=== PATIENT | male | born 1980 | race Caucasian/White ===

== ENCOUNTER 2019-11-28 11:33 | Emergency (ER) | payer OTHER ==
[2019-11-29 12:56] LABS: SARS-CoV-2 MS2 Positive; SARS-CoV-2 N Gene Negative; SARS-CoV-2 S Gene Negative; SARS-CoV-2 by NAA Not Detected (NotDetected); SARS-CoV-2 orf1ab Negative
== END 2019-11-28 12:45 | disposition home or self-care (01) ==
LOC: ERS 11:33
DX: J34.89 Other specified disorders of nose and nasal sinuses (principal); R05 Cough; R06.00 Dyspnea, unspecified; Z20.828 Contact with and (suspected) exposure to other viral communicable diseases; F41.9 Anxiety disorder, unspecified
CPT/HCPCS: 87635; 99284; U0003

== ENCOUNTER 2020-09-02 09:37 | Emergency (ER) | payer OTHER, SELFPAY ==
[2020-09-02 18:22] LABS: SARS-CoV-2 PCR by NAA Not Detected (NotDetected)
== END 2020-09-02 12:03 | disposition home or self-care (01) ==
LOC: ERS 09:37
DX: J06.9 Acute upper respiratory infection, unspecified (principal); Z20.822 Contact with and (suspected) exposure to COVID-19
CPT/HCPCS: 87635; 99283; U0003; U0005